=== PATIENT | female | born 1985 | race Caucasian/White ===

== ENCOUNTER 2021-02-26 09:05 | Emergency (ER) | payer BC, SELFPAY ==
[2021-02-26] VITALS (14 sets, daily range): BP systolic 103–139; BP diastolic 67–98; PULSE 90–138; RESP 20; TEMP 36.6; O2SAT 98–100
--- NOTE | ~2021-02-26 | XR_ITS ---
EXAMINATION: XR chest 2V DATE: 02/26/2021 09:31 INDICATION: Atrial fibrillation presenting with palpitations TECHNIQUE: frontal and lateral views of the chest were obtained. COMPARISON: None FINDINGS: The lungs are clear with no focal airspace opacities, pulmonary edema, pleural effusion or pneumothor ax. The cardiomediastinal silhouette is normal. Mild thoracic spondylosis. IMPRESSION: 1. No acute cardiopulmonary disease. Reviewed, dictated and finalized at location A.
--- NOTE | 2021-02-26 09:13 | ECG_ITS ---
Measurements Intervals [place] Rate: 126 P: [place]: 0 QRS: -44 QRSD: 161 T: 117 QT: 339 QTc: 491 Interpretive Statements ATRIAL FLUTTER/TACHYCARDIA WITH RAPID VENTRICULAR RESPONSE LEFT AXIS DEVIATION LEFT BUNDLE BRANCH BLOCK ABNORMAL ECG Electronically Signed On 02-26-2021 17:09:42 CDT by Edouard Conde D.O.
[2021-02-26] MEDS: ASPIRIN 81 MG CHEWABLE TABLET 324 MG PO (09:16)
[2021-02-26] MEDS: dilTIAZem HCl INJ 25 MG/5 ML VIAL 10 MG IV PUSH (09:17)
--- NOTE | 2021-02-26 09:18 | ED.ARRPALP ---
HPI - Arrhythmia/Palpitations General Chief Complaint: Arrhythmia/Palpitations Stated Complaint: palpitations Time Seen by Provider: 02/26/21 09:13 History of Present Illness HPI narrative: Patient is a 35-year-old female who presents ER with reports of heart palpitations. She awoke at 6:30 AM feeling like she was in A. fib with RVR. She has had A. fib for the last 7 years. She takes metoprolol. She took her evening dose last night. Reports she stayed up a little late but has no additional stressors that may have exacerbated this. She sees Dr. Araya at [facility] for heart care. Patient was having some chest tightness related to this. She is also having lightheadedness. Related Data Home Medications Medication Instructions Recorded Confirmed lorazepam 1 mg PO PRN 02/26/21 02/26/21 metoprolol succinate 75 mg PO DAILY 02/26/21 02/26/21 valacyclovir 500 mg PO DAILY 02/26/21 02/26/21 Allergies Allergy/AdvReac Type Severity Reaction Status Date / Time No Known Allergies Allergy Verified 02/26/21 09:13 Review of Systems Review of Systems: All systems reviewed & are unremarkable except as noted in HPI and below Constitutional: Constitutional: Denies chills, Denies fever(s) and Denies weakness ENT: Denies nasal congestion and Denies sore throat Cardiovascular: Cardiovascular: Denies chest pain, Reports rapid heart rate and Denies radiating jaw, neck or arm pain Comments: Lightheadedness Respiratory: Respiratory: Denies cough and Denies dyspnea Gastrointestinal: Gastrointestinal: Denies abdominal pain, Denies nausea and Denies vomiting Neurologic: Denies syncope, Denies focal weakness and Denies numbness PMF Past Medical History Medical History (Updated 02/26/21 @ 15:38 by Moustapha Bahena MD) Anxiety Atrial fibrillation Surgical History Surgical History (Updated 02/26/21 @ 15:35 by Moustapha Bahena MD) H/O cardiac radiofrequency ablation x2 Social History Social History (Updated 02/26/21 @ 15:35 by Moustapha Bahena MD) Smoking status: Never smoker Exam Narrative: GENERAL: Well-appearing, obese, and in no acute distress. HEAD: Normocephalic, atraumatic. EYES: PERRL and EOMI. ENT: Mucous membranes moist. CHEST: Clear to auscultation. No respiratory distress. HEART: Irregular regular rate and rhythm. Normal peripheral pulses. ABDOMEN: Soft, nontender, nondistended. EXTREMITIES: Normal range of motion. No edema. SKIN: Warm, dry, no rash. NEURO: Alert and oriented x3. PSYCH: Mildly anxious with normal affect. Course Reevaluation(s) Reevaluation #1: Discussed the case with Dr. Hernandez who is aeronautical project engineer for Dr. Araya at [facility]. We have discussed with the patient has had IV diltiazem 10 mg and metoprolol 10 mg IV. He recommends the patient receive 75 mg of oral metoprolol now which is her home dose that she will just be receiving orally. After discussion with him and patient is determined the best course of action is to not cardiovert the patient this time but to transfer to [facility] for further evaluation and management as patient cannot receive QT prolonging antiarrhythmics and has had 2 cardiac ablations in the past. Does not recommend giving patient any anticoagulation. Date: 02/26/21 Time: 10:47 Reevaluation #2: Patient now has a bed at [facility]. Patient has had variable heart rate between the low 100s and the 130s. Blood pressure stable. Date: 02/26/21 Time: 15:40 Vital Signs Vital signs: Vital Signs Temperature 97.8 F 02/26/21 09:08 Pulse Rate 134 H 02/26/21 09:08 Respiratory Rate 20 02/26/21 09:08 Blood Pressure 119/97 H 02/26/21 09:08 Pulse Oximetry 98 02/26/21 09:08 Temperature 97.8 F 02/26/21 09:08 Pulse Rate 130 H 02/26/21 15:01 Respiratory Rate 20 02/26/21 15:01 Blood Pressure 119/79 02/26/21 15:01 Pulse Oximetry 100 02/26/21 15:01 MDM - Arrhythmia/Palpitations Lab Data Result diagrams: 02/26/21 09:20 02/26/21 09:20 Labs: Lab
[2021-02-26 09:34] LABS: Basophils Percent Auto 0.5 % (0.2-1.2); Eosinophils Absolute Auto 0.1 K/mm3 (0-0.3); Eosinophils Percent Auto 0.8 % (0-4.4); Hematocrit 44.4 % (37.0-47.0); Hemoglobin 14.2 g/dL (12.0-15.0); Immature Granulocyte Absolute 0.01 K/mm3 (0.00-0.031); Immature Granulocyte Percent A 0.2 % (0-0.5); Lymphocytes Absolute Auto 1.26 K/mm3 (0.9-3.2); Lymphocytes Percent Auto 20.9 % (18.3-44.2); Mean Corpuscular Hemoglobin 28.2 pg (26-34); Mean Corpuscular Volume 88.3 fl (80-100); Mean Platelet Volume 10.6 fl (7.4-10.4); Monocytes Absolute Auto 0.5 K/mm3 (0.1-0.6); Monocytes Percent Auto 8.6 % (2.6-8.5); Neutrophils Absolute Auto 4.2 K/mm3 (1.3-6.7); Platelet Count Result 212 k/mm3 (150-375); Red Blood Count 5.03 M/mm3 (4.2-5.4); Red Cell Distribution Width 15.2 % (11.5-14.5)
[2021-02-26 09:42] LABS: INR 0.9; Prothrombin Time 12.2 Seconds (11.1-14.7)
[2021-02-26 09:43] LABS: Partial Thromboplastin Time 28.6 SECONDS (22.3-36.8)
[2021-02-26 09:46] LABS: Anion Gap 10 mmol/L (8-16); Blood Urea Nitrogen 17 mg/dL (7-17); Calcium 9.2 mg/dL (8.4-10.2); Carbon Dioxide 23 mmol/L (22-30); Chloride 102 mmol/L (98-107); Estimated CRCL calculation 183 ml/min; Estimated Glomerular Filt Rate > 60; Glucose 115 mg/dL (65-110); Potassium 3.6 mmol/L (3.4-5.0); Sodium 135 mmol/L (137-145)
[2021-02-26] MEDS: METOPROLOL TARTRATE INJ 5 MG/5 ML VIAL IV PUSH ×2 (09:48→10:48)
[2021-02-26 09:57] LABS: Troponin I < 0.012 ng/mL (0.000-0.034)
--- NOTE | 2021-02-26 10:12 | PC.NURSE ---
Talked to Fani at 10:13 to add on MG
[2021-02-26] MEDS: LORazepam INJ (*CRX) 2 MG/ML VIAL 0.5 MG IV PUSH (10:49)
--- NOTE | 2021-02-26 11:33 | PC.NURSE ---
CALL RECEIVED FROM [facility]. PT HAS BEEN ACCEPTED BY [facility]. TRIAGE INFORMATION HAS BEEN GIVEN. STATES WILL CALL WHEN BED IS ASSIGNED
[2021-02-26] MEDS: METOPROLOL SUCCINATE EXT REL 25 MG, METOPROLOL SUCCINATE EXT REL 50 MG 75 MG PO (11:43)
[2021-02-26 13:29] LABS: Troponin I < 0.012 ng/mL (0.000-0.034)
--- NOTE | 2021-02-26 15:32 | PC.NURSE ---
CALL RECEIVED FROM [facility]. PT HAS BEEN ACCEPTED TO ROOM 5531-4. REPORT TO BE CALLED TO [phone]
--- NOTE | 2021-02-26 15:35 | PC.NURSE ---
[facility] accepted to [facility] 4:30 Trip# [id number]
[2021-02-26 15:41] LABS: Troponin I < 0.012 ng/mL (0.000-0.034)
--- NOTE | 2021-02-26 15:48 | PC.NURSE ---
CALLED REPORT TO ANITA DOWNEY AT [facility]
== END 2021-02-26 16:10 | disposition short-term general hospital (02) ==
PROVIDERS: Emergency Provider Emergency Medicine; PCP Internal Medicine
DX: I48.91 Unspecified atrial fibrillation (principal); F41.9 Anxiety disorder, unspecified; I44.7 Left bundle-branch block, unspecified
CPT/HCPCS: 36415; 71046; 80048; 83735; 84484; 85025; 85610; 85730; 93005; 96374; 96375; 96376; 99285; A9270; J2060